=== PATIENT | male | born 1980 | race Caucasian/White ===

== ENCOUNTER 2017-02-03 20:03 | Emergency (ER) | payer OTHER ==
[2017-02-03 20:17] VITALS: BP 120/82; PULSE 72; RESP 20; TEMP 98.1; O2SAT 98
[2017-02-03] MEDS ORDERED: Lidocaine 2% Inj (20ml) ONE (20:44)
[2017-02-03] MEDS ORDERED: Bacitracin 500 Units/gm Oint Foilpak UD TOP STA (20:49)
[2017-02-03] MEDS ORDERED: Lidocaine 2% Inj (20ml) INFIL STA (20:49)
[2017-02-03] MEDS ORDERED: Tetanus/Diphtheria Toxoids 0.5 ml Syringe IM ONE ×2 (20:49→20:53)
--- NOTE | 2017-02-03 21:32 | C.PDOC ---
History Of Present Illness 36 year old male presents to the ED for evaluation of fourth finger of the left hand after accidentally dropping heavy dumbbell just prior to arrival. He denies changes in sensation or other complaints at this time. Time Seen by Provider: 02/03/17 20:49 Chief Complaint (Nursing): Abnormal Skin Integrity History Per: Patient History/Exam Limitations: no limitations Onset/Duration Of Symptoms: Hrs (just prior to arrival ) Current Symptoms Are (Timing): Still Present Location Of Injury: Left: Hand (fourth finger ) Quality Of Symptoms: Painful Recent travel outside of the [place]: No Past Medical History Reviewed: Historical Data, Nursing Documentation, Vital Signs Vital Signs: Last Vital Signs Temp 98.1 F 02/03/17 20:15 Pulse 72 02/03/17 20:15 Resp 20 02/03/17 20:15 BP 120/82 02/03/17 20:15 Pulse Ox 98 02/03/17 22:22 Family History: States: Unknown Family Hx - Social History Hx Alcohol Use: No Hx Substance Use: No - Immunization History Hx Tetanus Toxoid Vaccination: No Hx Influenza Vaccination: No Hx Pneumococcal Vaccination: No Review Of Systems Constitutional: Negative for: Fever Cardiovascular: Negative for: Chest Pain Respiratory: Negative for: Shortness of Breath Musculoskeletal: Positive for: Hand Pain (left hand pain ) Neurological: Negative for: Weakness, Numbness Physical Exam - Physical Exam Appears: Non-toxic, No Acute Distress Skin: Warm, Dry Head: Atraumatic Eye(s): bilateral: Normal Inspection, EOMI Oral Mucosa: Moist Extremity: Normal ROM, No Swelling, Other (Visible matrix of left fourth finger nail due to laceration. Subcutaneous proximal nail from nail bed. Subungual hemorrhage 75% of the left fourth finger. ) Neurological/Psych: Oriented x3, Normal Speech, Normal Cognition, Normal Motor, Normal Sensation ED Course And Treatment O2 Sat by Pulse Oximetry: 98 (room air ) - Other Rad Left Hand X-Ray X-Ray: Interpreted by Me, Viewed By Me Interpretation: Tuft fracture of the fourth finger. Progress Note: Patient was given Keflex and tetanus vaccine. Digital block of the left fourth finger was performed. Subcutaneous aspect of nail was sutured back to the skin. Trepanation of the nail performed with electrical cautery. Finger splint was applied. Laceration - Laceration Repair Fourth finger of the left hand Wound Length (In cm): 2 cm Description Of Wound: Irregular Wound Cleansed With: Betadine, Sterile Saline Anesthesia: Lidocaine 2% Wound Examination: Irrigated With Saline, No FB With Wound Exploration Wound Closure: Suture (4 sutures) Suture Technique And Material Used: Interrupted, Nylon (3-0 ) Wound Complexity: Simple Disposition - Disposition Referrals: Ismael Negrete MD [Staff Provider] - Disposition: HOME/ ROUTINE Disposition Time: 21:36 Condition: STABLE Additional Instructions: Follow up with within 1-2 days. Return to ED immediately if feel worse. Prescriptions: Cephalexin [cephalexin] 500 mg PO Q6 #28 cap oxyCODONE/Acetaminophen [Percocet 5/325 mg Tab] 1 tab PO QID PRN #20 tab PRN Reason: Pain Instructions: Subungual Hematoma (ED), Finger Fracture (ED), Finger Laceration (ED) Forms: [facility] (Irish), Work Excuse - Clinical Impression Clinical Impression: Finger laceration, Finger fracture, Subungual hematoma of digit of hand - Scribe Statement The provider has reviewed the documentation as recorded by the Scribe Lauren Wilson All medical record entries made by the Scribe were at my direction and personally dictated by me. I have reviewed the chart and agree that the record accurately reflects my personal performance of the history, physical exam, medical decision making, and the department course for this patient. I have also personally directed, reviewed, and agree with the discharge instructions and disposition.
--- NOTE | 2017-02-04 09:37 | RAD ---
PROCEDURE: Left ring finger radiographs. HISTORY: injury COMPARISON: None available. TECHNIQUE: AP radiograph of the left hand, as well as spot oblique and lateral images of left ring finger were obtained. FINDINGS: LEFT RING FINGER: Comminuted displaced fracture of the 4th distal tuft. Remainder of the left hand (as seen on the AP view) is grossly unremarkable. JOINTS: No dislocation. SOFT TISSUES: Soft tissue swelling. No evidence of radiopaque foreign body. OTHER FINDINGS: None. IMPRESSION: Comminuted displaced fracture of the 4th distal tuft with associated soft tissue swelling.
== END 2017-02-03 21:45 | disposition home or self-care (01) ==
LOC: C.ER 20:03
DX: S61.315A Laceration without foreign body of left ring finger with damage to nail, initial encounter (principal); S62.635A Displaced fracture of distal phalanx of left ring finger, initial encounter for closed fracture; S60.142A Contusion of left ring finger with damage to nail, initial encounter; W22.8XXA Striking against or struck by other objects, initial encounter

== ENCOUNTER 2017-02-11 09:33 | Emergency (ER) | payer OTHER ==
[2017-02-11 09:41] VITALS: BP 123/85; PULSE 87; RESP 18; TEMP 98.1; O2SAT 98
--- NOTE | 2017-02-11 10:05 | C.PDOC ---
History Of Present Illness 36 yo male, presents "requesting to be evaluated by a orthopedic surgeon". pt was seen last week in er for finger fx. pt has appointment with orthopedics, but "did not want to wait for appointment". pt states no new trauma. no other complaints. Time Seen by Provider: 02/11/17 09:50 Chief Complaint (Nursing): Finger,Hand,&Wrist Past Medical History Reviewed: Historical Data, Nursing Documentation, Vital Signs Vital Signs: Last Vital Signs Temp 98.1 F 02/11/17 09:41 Pulse 87 02/11/17 09:41 Resp 18 02/11/17 09:41 BP 123/85 02/11/17 09:41 Pulse Ox 98 02/11/17 09:41 Family History: States: Unknown Family Hx - Social History Hx Alcohol Use: No Hx Substance Use: No - Immunization History Hx Tetanus Toxoid Vaccination: No Hx Influenza Vaccination: No Hx Pneumococcal Vaccination: No Review Of Systems Musculoskeletal: Positive for: Other ((+)left ring finger splint in place, no erythema, no drainage. ) Physical Exam - Physical Exam Appears: Well, No Acute Distress Skin: Normal Color, Warm, Dry Eye(s): bilateral: Normal Inspection, PERRL, EOMI Nose: Normal Throat: Normal Neck: Normal Cardiovascular: Rhythm Regular Respiratory: Normal Breath Sounds Gastrointestinal/Abdominal: Normal Exam Back: Normal Inspection Extremity: Normal ROM, Other ((+)left 4th digit. splint in place no drainage no erythema) ED Course And Treatment O2 Sat by Pulse Oximetry: 98 Medical Decision Making Medical Decision Making: pt has outpt ortho appointment. previous fracture shows communated fx. pt will need to see hand surgery as outpt. 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 dressing/splint reapplied by tech. Disposition - Disposition Referrals: Sue Shine MD [Staff Provider] - Disposition: HOME/ ROUTINE Disposition Time: 10:06 Condition: STABLE Additional Instructions: please see orthopedics as an outpt. return to er with worsening symptoms or concerns. Instructions: Finger Fracture (ED) Forms: [facility] (Romansh) - Clinical Impression Clinical Impression: Finger fracture
[2017-02-11] MEDS ORDERED: Bacitracin 500 Units/gm Oint Foilpak UD ONE (10:16)
== END 2017-02-11 10:36 | disposition home or self-care (01) ==
LOC: C.ER 09:33
DX: S62.635D Displaced fracture of distal phalanx of left ring finger, subsequent encounter for fracture with routine healing (principal); W22.8XXD Striking against or struck by other objects, subsequent encounter